=== PATIENT | female | born 1950 | race Two or more races ===

== ENCOUNTER 2024-02-28 09:22 | Day surgery (SDC) | payer MEDICARE, OTHER ==
[~2024-02-28] VITALS: Ht 152.4 cm; Wt 77.1 kg
[2024-02-28] MEDS ORDERED: MIDAZOLAM 5 MG/5 ML VIAL ONE (11:19)
[2024-02-28] MEDS ORDERED: fentaNYL citrate 0.05 MG/ML VIAL ONE (11:19)
[2024-02-28] MEDS: MIDAZOLAM 5 MG/5 ML VIAL IV ONE (11:32)
[2024-02-28] MEDS: fentaNYL citrate 0.05 MG/ML VIAL IVP ONE (11:34)
[2024-02-28] MEDS: LIDOCAINE 2% 100 MG/5 ML UJET TP ONE (11:40)
== END 2024-02-28 13:14 | disposition home or self-care (01) ==
LOC: MDS 09:22 → MMU 09:26 → MDS 13:14
PROVIDERS: ATTEND Internal Medicine Gastroenterology
DX: R10.32 Left lower quadrant pain (principal); R10.13 Epigastric pain; K63.5 Polyp of colon; K44.9 Diaphragmatic hernia without obstruction or gangrene; K29.70 Gastritis, unspecified, without bleeding; I10 Essential (primary) hypertension; E78.5 Hyperlipidemia, unspecified; Z88.2 Allergy status to sulfonamides; Z79.899 Other long term (current) drug therapy; Z98.890 Other specified postprocedural states
CPT/HCPCS: 36415; 43239; 45385; 86677; J2250; J3010